=== PATIENT | female | born 1990 | race African-American/Black ===

== ENCOUNTER 2017-06-24 16:44 | Emergency (ER) | payer OTHER ==
[2017-06-24 16:57] VITALS: BP 136/76; BMI 38.2
--- NOTE | 2017-06-24 18:07 | DR.GENAD ---
HPI - PCP Primary Care Physician: gunner - Complaint/Symptoms Chief Complaint Doctors Comments: History as stated. Chief Complaint:: patient stated she has a head cold and her entire body hurts and she stated she is 22 weeks - Source History Provided: Patient - Mode of Arrival Mode of Arrival: Ambulatory - Timing Onset of Chief Complaint: 06/24/17 PMH - PMH Past Medical History: No Past Surgical History: No - Family History History of Family Medical Conditions: Yes Family Medical History: Cancer, Hypertension - Social History Does patient currently use any type of tobacco product: No Have you used tobacco products in the last 12 months: No Type of Tobacco Use: None Does any household member use tobacco: No Alcohol Use: None Do you use any recreational Drugs:: No Lives With: Alone Lives Where: Home - infectious screening In the last 2 months have you had wt loss of >10#?: NO Have you had fever, night sweats or hemotysis?: No Have you traveled outside the country in the last 6 months?: No Isolation: Standard ROS - Review of Systems Eyes: No Symptoms Reported ENTM: No Symptoms Reported Respiratoy: No Symptoms Reported Cardiovascular: No Symptoms Reported Gastrointestinal/Abdominal: No Symptoms Reported Genitourinary: No Symptoms Reported Neurological: No Symptoms Reported Musculoskeletal: Back Pain, Neck Pain, Rib(s), Back, Other (head) Integumentary: No Symptoms Reported Hematologic/Lymphatic: No Symptoms Reported Endocrine: No Symptoms Reported Psychiatric: No Symptoms Reported All Other Systems: Reviewed and Negative PE - Vital Signs Vitals: Temperature 99.1 F Pulse Rate 87 Respiratory Rate 18 Blood Pressure [Right Arm] 160/92 Blood Pressure [Left Arm] 180/98 Blood Pressure 136/76 O2 Sat by Pulse Oximetry 100 - General General Appearance: Alert, In No Apparent Distress - Head Head Exam: Normal Inspection, Atraumatic - Eyes Eye exam: Normal Appearance, PERRL, EOMI - ENT ENT Exam: Normal Exam External Ear Exam: Normal External Inspection TM/Canal Exam: Bilateral Normal Nose Exam: Normal Nose Exam Mouth Exam: Normal Inspection Throat Exam: Normal Inspection - Neck Neck Exam: Normal Inspection - Chest Chest Inspection: Tenderness (Tenderness to palpation mid-sternum) - Respiratory Respiratory Exam: Normal Lung Sounds Bilat Respiratory Exam: Bilateral Clear to Auscultation - Cardiovascular Cardiovascular Exam: Regular Rate, Normal Rhythm - Abdominal Exam Abdominal Exam: Normal Inspection Abdominal Tenderness: negative: RUQ, RLQ, LUQ, LLQ, Epigastrium, Suprapubic, Diffuse, Mild, Moderate, Severe, Other - Extremities Extremities Exam: Normal Inspection, Full ROM - Back Back Exam: Normal Inspection - Neurologic Neurological Exam: Alert, Oriented X3, CN II-XII Intact - Psychiatric Psychiatric Exam: Normal Affect, Normal Mood - Skin Skin Exam: Warm, Dry, Intact, Normal Color ROR - Labs Reviewed Laboratory: Influenza Type A (PCR) Negative (NEGATIVE) 06/24/17 18:08 Influenza Type B (PCR) Negative (NEGATIVE) 06/24/17 18:08 - Diagnosis Discharge Problem: Costochondritis - Discharge Plan Condition: Stable - Follow ups/Referrals Follow ups/Referrals: NURA JOHNSTON [Primary Care Provider] - 3 days - Instructions
== END 2017-06-24 19:52 | disposition home or self-care (01) ==
LOC: ER 16:51
DX: M94.0 Chondrocostal junction syndrome [Tietze] (principal)
CPT/HCPCS: 87502; 96372; 99282; 99283

== ENCOUNTER → 2017-10-08 | Outpatient (CLI) | payer OTHER ==
[2017-10-08 22:26] LABS: BASOPHILS # (AUTO) 0.1 X10^3/uL (0.0-0.1); BASOPHILS % (AUTO) 0.6 % (0.2-1.0); EOSINOPHILS # (AUTO) 0.1 x10^3/uL (0.0-0.2); EOSINOPHILS % (AUTO) 0.8 % (0.9-2.9); HEMATOCRIT 33.9 % (36.0-47.0); HEMOGLOBIN 11.8 g/dL (12.0-16.0); LYMPHOCYTES # (AUTO) 2.2 X10^3/uL (1.3-2.9); LYMPHOCYTES % (AUTO) 24.4 % (21.0-51.0); MEAN CORPUSCULAR HEMOGLOBIN 30.1 pg (27.0-34.0); MEAN CORPUSCULAR HGB CONC 34.9 g/dL (33.0-35.0); MEAN CORPUSCULAR VOLUME 86.2 fL (80.0-100.0); MONOCYTES # (AUTO) 0.6 x10^3/uL (0.3-0.8); NEUTROPHILS # (AUTO) 6.1 x10^3/uL (2.2-4.8); NEUTROPHILS % (AUTO) 67.2 % (42.0-75.0); PLATELET COUNT 189 X10^3/uL (150.0-450.0); RED BLOOD COUNT 3.94 X10^6/uL (3.5-5.4); RED CELL DISTRIBUTION WIDTH 13.1 % (11.6-16.5); WHITE BLOOD COUNT 9.1 X10^3/uL (3.6-10.0)
[2017-10-08 22:29] LABS: BILIRUBIN,URINE NEGATIVE (NEGATIVE); BLOOD/HEMOGLOBIN,URINE 2+ (NEGATIVE); GLUCOSE, URINE NEGATIVE (NEGATIVE); KETONES,URINE NEGATIVE (NEGATIVE); LEUKOCYTE ESTERASE ,URINE 2+ (NEGATIVE); NITRITES,URINE NEGATIVE (NEGATIVE); PH,URINE 6.5 (5.0 - 8.0); PROTEIN,URINE 2+ (NEGATIVE); UROBILINOGEN,URINE NORMAL (NORMAL)
[2017-10-08 22:33] LABS: BLOOD UREA NITROGEN 7 mg/dL (7-18); CALCIUM 9.1 mg/dL (8.5-10.1); CARBON DIOXIDE 24.4 mmol/L (21-32); CHLORIDE 102 mmol/L (98-107); COR NA(FOR HYPERGLY) 135 mmol/L (136-145); CREATININE 0.66 mg/dL (0.55-1.02); SODIUM 134 mmol/L (136-145); eGFR BLACK RACES > 60 (>60); eGFR NON BLACK RACES > 60 (>60)
[2017-10-08 22:40] LABS: APPEARANCE,URINE SLIGHTLY HAZY (CLEAR); COLOR,URINE YELLOW (YELLOW)
[2017-10-08 22:41] LABS: BACTERIA,URINE 1+ /HPF (NEGATIVE); SQUAMOUS EPITHELIAL CELL,UR MODERATE /HPF (NEGATIVE); TRICHOMONAS,URINE FEW /HPF (NEGATIVE); YEAST,URINE RARE /HPF (NEGATIVE)
== END ==
LOC: LAB 21:53
PROVIDERS: ATTEND Specialist
DX: Z01.818 Encounter for other preprocedural examination (principal); Z34.83 Encounter for supervision of other normal pregnancy, third trimester
CPT/HCPCS: 36415; 80048; 80307; 81001; 85025; 86592; 86850; 86900; 86901; 87086; G0434

== ENCOUNTER 2017-10-10 05:48 | Inpatient (IN) | payer OTHER ==
[~2017-10-10 05:48] MED LIST: D5 1/2 NS 1000 ML 1,000 ML IV ONE
[2017-10-10] MEDS ORDERED: D5 1/2 NS 1L W PITOCIN 20 UNITS/L 20 UNITS/1,000 ML BAG IV ONE ×2 (05:49→06:27)
[2017-10-10] MEDS ORDERED: D5LR 1L W PITOCIN 10 UNITS/L 10 UNITS/1,000 ML BAG IV ONE (05:49)
[2017-10-10] MEDS ORDERED: PITOCIN ONE ×2 (05:49→06:26)
[2017-10-10] MEDS ORDERED: D5 LR 1000 ML 1,000 ML IV ONE (06:26)
[2017-10-10] MEDS ORDERED: D5 1/2 NS 1000 ML 1,000 ML IV ONE (06:27)
[2017-10-10] MEDS ORDERED: MORPHINE SULFATE INJ 2 MG INJ IVP PRN (06:32)
[2017-10-10] MEDS ORDERED: AMPICILLIN VIAL 2 GM 2 GM in NS 100 ML IV + SPIKE MINIBAG* 100 ML IV SCH (06:32)
[2017-10-10] MEDS ORDERED: PITOCIN IVP ONE (06:32)
[2017-10-10] MEDS ORDERED: NUBAIN INJ 200 MG VIAL MULTIDOSE IVP PRN (06:32)
[2017-10-10] MEDS ORDERED: D5 1/2 NS 1000 ML 1,000 ML IV SCH (06:32)
[2017-10-10] MEDS ORDERED: D5LR 1L W PITOCIN 10 UNITS/L 10 UNITS/1,000 ML BAG IV PRN (06:32)
[2017-10-10] MEDS ORDERED: REGLAN INJ 10 MG VIAL IVP PRN ×2 (06:32→16:25)
[2017-10-10] MEDS ORDERED: PHENERGAN INJ 25 MG IV PRN ×2 (06:32→15:29)
--- NOTE | 2017-10-10 06:43 | DR.OB ---
OB Quick Note - Assessment/Plan Assessment/Plan: L&D 10/10/17 at 6:20am S-No complaint. O-Afebrile,VSs [id number] with good LTV, +accel, no decel. CTX=mild,irreg. CVX=2cm/50%/-1/VTX AROM with clear fluid. IUPC and FSE placed. A-IUP at 38 2/7 weeks for induction PIH Rh- h/o GBS P-Begin pitocin induction IV ABX in labor F/U preeclamptic labs Anticipate
[2017-10-10] MEDS ORDERED: NS 100 ML IV 100 ML IV ONE ×3 (06:48→14:21)
[2017-10-10] MEDS ORDERED: AMPICILLIN VIAL 2 GM ONE (06:48)
[2017-10-10 07:00] LABS: URIC ACID 3.5 mg/dL (2.6-6.0)
[2017-10-10] MEDS ORDERED: NORMODYNE INJ 100 MG VIAL IVP PRN (08:38)
[2017-10-10] MEDS ORDERED: NORMODYNE INJ 20 MG VIAL ONE (08:44)
[2017-10-10] MEDS ORDERED: FENTANYL INJ 100 mcg ONE (10:43)
[2017-10-10] MEDS ORDERED: LR 1000 ML IV 1,000 ML IV ONE ×2 (10:43→10:51)
[2017-10-10] MEDS ORDERED: ANCEF VIAL 1 GM ONE (10:43)
[2017-10-10] MEDS ORDERED: NAROPIN EPIDURAL 0.2% + FENTANYL 90MCG 60 ML EPI ONE (10:44)
[2017-10-10] MEDS ORDERED: FENTANYL INJ 100 mcg EPI ONE (10:51)
[2017-10-10] MEDS ORDERED: AMPICILLIN VIAL 1 GM ONE ×2 (10:54→14:21)
[2017-10-10] MEDS: AMPICILLIN VIAL 1 GM 1 GM in NS 50 ML IV + SPIKE MINIBAG* 50 ML IV SCH ×2 (11:00→14:55)
[2017-10-10] MEDS ORDERED: NAROPIN EPIDURAL 0.2% 60 ML with FENTANYL INJ 100 mcg 90 MCG IVP SCH ×2 (11:00)
--- NOTE | 2017-10-10 11:55 | DR.OB ---
OB Quick Note - Assessment/Plan Assessment/Plan: L&D 10/10/17 at 11:40am Pitocin=20mu/min. Ampicillin S-No complaint. s/p epidural. O-Afebrile,VSS BPJ=599 with good LTV, +accel, no decel. CTX=q 1 1/2 to 2 min., about 45-65mmHg CVX=3-4cm/75%/-1 A-IUP at 38 2/7 weeks for induction PIH Rh- h/o GBS P-Cont. pitocin induction/IV ABX in labor Anticipate
[2017-10-10] MEDS ORDERED: MOTRIN TAB 800 MG PO PRN (15:29)
--- NOTE | 2017-10-10 15:37 | DR.OB ---
OB Quick Note - Assessment/Plan Assessment/Plan: Delivery Note TONG HOOKER 10/10/17 at 3:30pm Patient complete and pushing. Head delivered over intact perineum. No nuchal cord. Nose and mouth bulb suctioned. Body delivered over intact perineum. Cord clamped x 2 and cut. handed to attendant. Cord sent for gases. Placenta delivered spontaneously / intact / 3 vessel cord. No CVX / vaginal / perineal tears. Viable female infant, wt=7'14" and 5/9, stable to NBN. Mother stable to RR. [id number].
[2017-10-10] MEDS ORDERED: D5 1/2 NS 1000 ML 1,000 ML with PITOCIN 20 UNITS IV SCH ×2 (16:00)
[2017-10-10] MEDS ORDERED: AMBIEN PO PRN (16:25)
[2017-10-10] MEDS ORDERED: ADACEL TDaP IM ONE (16:25)
[2017-10-10] MEDS ORDERED: HYPERRHO S/D (or RHOGAM) IM PRN (16:25)
[2017-10-10] MEDS ORDERED: MILK OF MAGNESIA PO PRN (16:25)
[2017-10-10] MEDS: MOTRIN TAB 800 MG PO PRN (22:38)
[2017-10-11] MEDS ORDERED: D5 1/2 NS 1000 ML 1,000 ML with PITOCIN 20 UNITS IV SCH ×2
[2017-10-11] MEDS: ZANTAC PO SCH ×3 (00:55→20:21)
[2017-10-11] MEDS ORDERED: ADACEL TDaP IM ONE (04:55)
[2017-10-11 06:00] LABS: HEMATOCRIT 31.1 % (36.0-47.0); HEMOGLOBIN 10.8 g/dL (12.0-16.0)
[2017-10-11] MEDS: MOTRIN TAB 800 MG PO PRN ×2 (06:34→20:20)
[2017-10-11] MEDS: PRENATAL PLUS PO SCH (08:37)
[2017-10-11] MEDS: DERMOPLAST SPRAY TOP PRN (08:52)
[2017-10-12] MEDS: MOTRIN TAB 800 MG PO PRN (03:52)
[2017-10-12] MEDS ORDERED: DEPO-PROVERA CONTRACEPTIVE INJ IM ONE (06:40)
[2017-10-12] MEDS: ZANTAC PO SCH (08:28)
[2017-10-12] MEDS: PRENATAL PLUS PO SCH (08:28)
[2017-10-12] MEDS: DERMOPLAST SPRAY TOP PRN (08:53)
[2017-10-12 09:16] VITALS: BP 135/79
== END 2017-10-12 11:40 | disposition home or self-care (01) | DRG 775 ==
LOC: LD 05:48 → MED/SURG 16:27
PROVIDERS: ADMIT Specialist; ATTEND Specialist
PROC: 10E0XZZ Delivery of Products of Conception, External Approach (ICD-10-PCS; principal; 2017-10-10)
PROC: 10907ZC Drainage of Amniotic Fluid, Therapeutic from Products of Conception, Via Natural or Artificial Opening (ICD-10-PCS; 2017-10-10)
PROC: 3E033VJ Introduction of Other Hormone into Peripheral Vein, Percutaneous Approach (ICD-10-PCS; 2017-10-10)
PROC: 00HU33Z Insertion of Infusion Device into Spinal Canal, Percutaneous Approach (ICD-10-PCS; 2017-10-10)
DX: O13.3 Gestational [pregnancy-induced] hypertension without significant proteinuria, third trimester (principal); Z37.0 Single live birth; O99.613 Diseases of the digestive system complicating pregnancy, third trimester; Z3A.38 38 weeks gestation of pregnancy; Z23 Encounter for immunization; Z01.818 Encounter for other preprocedural examination; Z34.83 Encounter for supervision of other normal pregnancy, third trimester
CPT/HCPCS: 09167; 36415; 59409; 80048; 80307; 81001; 83615; 84450; 84460; 84550; 85014; 85018; 85025; 85384; 85610; 85730; 86592; 86850; 86900; 86901; 87086; A4216; A4222; S0197; G0434; J0290; J0690; J1050; J2590; J2790; J3010; J3490; J7042; J7120